=== PATIENT | female | born 1950 | race Caucasian/White ===

== ENCOUNTER 2018-06-08 14:49 | Emergency (ER) | END 2018-06-08 15:55 | disposition home or self-care (01) ==

== ENCOUNTER 2018-10-20 11:46 | Emergency (ER) | payer OTHER, MEDICAID ==
[~2018-10-20] VITALS: Wt 81.0 kg
[~2018-10-20 11:46] MED LIST: HYDR-4011 PO; INDO-39 PO; PRED20TA PO
[2018-10-20] MEDS ORDERED: METHYLPRED. NA SUCC 500 MG in DEXTROSE 5% 50 ML IVPB ONE (14:30)
--- NOTE | 2018-10-20 14:31 | ERD ---
ER Documentation Chief Complaint Chief Complaint ARTHRITIS PAIN X 2 MONTHS HPI 68-year-old female, with history of rheumatoid arthritis, presents to the emergency department, complaining of worsening of pain and edema bilateral hand for the last 5 days. Otherwise, no fever, no chills. The patient is taking indomethacin. ROS All systems reviewed and are negative except as per history of present illness. Medications Home Meds Active Scripts Indomethacin* (Indocin*) 50 Mg Cap, 50 MG PO BID, #20 CAP Prov:VIKASH CROW MD 06/08/18 Hydrocodone/Acetaminophen ([place] 5-325 Tablet) 1 Each Tablet, 1 TAB PO Q6H PRN for PAIN, #20 TAB Prov:VIKASH CROW MD 06/08/18 Prednisone* (Prednisone*) 20 Mg Tab, 40 MG PO DAILY for 4 Days, TAB Prov:VIKASH CROW MD 06/08/18 Allergies Allergies: Coded Allergies: No Known Allergy (Unverified , 06/08/18) PMhx/Soc History of Surgery: Yes (thryroid) Hx Cardiac Disorders: Yes (htn) Hx Miscellaneous Medical Probl: Yes (dm; gouty arthritis; hx thyroid) Hx Alcohol Use: No Hx Substance Use: No Hx Tobacco Use: No Smoking Status: Never smoker FmHx Family History: No diabetes, No coronary disease Physical Exam Vitals Vital Signs Date Temp Pulse Resp B/P (MAP) Pulse Ox O2 O2 Flow FiO2 Time Delivery Rate 10/20/18 98.1 79 18 148/70 99 11:58 (96) Physical Exam Const: No acute distress Head: Atraumatic Eyes: Normal Conjunctiva ENT: Normal External Ears, Nose and Mouth. Neck: Full range of motion. No meningismus. Resp: Clear to auscultation bilaterally Cardio: Regular rate and rhythm, no murmurs Abd: Soft, non tender, non distended. Normal bowel sounds Skin: No petechiae or rashes Back: No midline or flank tenderness Ext: No cyanosis, or edema Neur: Awake and alert Psych: Normal Mood and Affect Results 24 hrs Current Medications Medications Dose Sig/Joce Start Time Status Last (Trade) Ordered Route PRN Stop Time Admin Dose Reason Admin 50 ml @ ONCE ONCE 10/20/18 Methylprednis 100 mls/hr IVPB 14:30 10/20/18 olone Sodium 14:59 Succinate 500 mg/Dextrose Procedures/MDM Vital signs stable. Differential diagnosis considered include osteoarthritis, rheumatoid arthritis, reactive arthritis, lupus, thyroid disease. Low suspicion for septic arthritis. During the ED course the patient remained stable, no new complaints. The patient received treatment with Solu-Medrol IV presenting overall improvement of the symptoms. Results and clinical impression discussed with the patient who agrees with management. The patient is stable to be treated outpatient and will be discharged home with a Rx for prednisone and [place], some side effects of pres cribed medications (headache, rash, nausea, vomiting, diarrhea, drowsiness, habituation, bleeding, hypertension, interactions with other medications) were reviewed. Follow up with the primary care provider in the next 48h has been recommended. If symptoms persist, worsen or new symptoms develop, then patient should return to the ED immediately. Instructions explained and given directly by me to the patient with acknowledgment and demonstrated understanding. Disclaimer: Inadvertent spelling and grammatical errors are likely due to EHR/dictation software use and do not reflect on the overall quality of patient care. Also, please note that the electronic time recorded on this note does not necessarily reflect the actual time of the patient encounter. Departure Diagnosis: Primary Impression: Arthritis Condition: Stable Additional Instructions: Thank you very much for allowing us to participate in your care. Your health and safety is our top priority at [facility]. Call your primary care doctor TOMORROW for an appointment during the next 2-4 days and bring all the information and medications prescribed. Have prescriptions filled and follow precisely the directions on the label. If the symptoms get worse and your provider is unavailable, return to the Emergency Department immediately. VIKASH CROW MD Oct 20, 2018 14:32
[2018-10-20] MEDS ORDERED: HYDR-4011 PO (14:34)
[2018-10-20] MEDS ORDERED: PRED20TA PO (14:34)
[2018-10-20 16:08] VITALS: BP 140/81; PULSE 88; RESP 18
== END 2018-10-20 16:08 | disposition home or self-care (01) ==
LOC: FTE 11:46
DX: M06.9 Rheumatoid arthritis, unspecified (principal); I10 Essential (primary) hypertension; E11.9 Type 2 diabetes mellitus without complications
CPT/HCPCS: 96365; 99284; J2930